=== PATIENT | male | born 1990 | race Caucasian/White ===

== ENCOUNTER 2024-04-28 11:43 | Outpatient (REF) | payer SELFPAY ==
[2024-04-28 13:06] LABS: MANUAL DIFF FLAG NO
[2024-04-28 13:14] LABS: Basophils Absolute Auto 0.1 X10*3/uL (0.0-0.2); Basophils Percent Auto 0.6 % (0-2); Eosinophils Absolute Auto 0.4 X10*3/uL (0.0-0.4); Eosinophils Percent Auto 4.4 % (0-4); Hematocrit 46.5 % (42.0-52.0); Hemoglobin 15.4 g/dl (14.0-18.0); Imm Gran Abs Auto 0.04 X10*3/uL (0.00-0.03); Imm Gran Pct Auto 0.5 % (0.0-0.4); Lymphocytes Percent Auto 22.8 % (20-40); Mean Corpuscular HGB Conc 33.1 g/dl (31.0-36.0); Mean Corpuscular Hemoglobin 29.3 pg (27.0-33.0); Mean Corpuscular Volume 88.6 fL (80.0-98.0); Mean Platelet Volume 9.9 fL (9.4-12.4); Monocytes Absolute Auto 0.5 X10*3/uL (0.1-1.2); Monocytes Percent Auto 5.8 % (2-11); Neutrophils Absolute Auto 5.7 x10*3/uL (2.0-8.3); Neutrophils Percent Auto 65.9 % (45-73); Platelet Count 310 X10*3/uL (160-400); Red Blood Count 5.25 X10*6/uL (4.60-5.80); Red Cell Distribution Width 13.1 % (11.0-16.0); White Blood Count 8.6 X10*3/uL (4.8-10.8)
[2024-04-28 13:42] LABS: Valproate 67.8 mcg/mL (50.0-100.0)
[2024-04-28 13:50] LABS: Alanine Aminotransferase 55 U/L (0-40); Albumin Level 4.1 g/dL (3.5-5.0); Alkaline Phosphatase 54 U/L (39-117); Anion Gap 13 (12-20); Aspartate Amino Transferase 27 U/L (5-37); Bilirubin Total 0.6 mg/dL (0.0-1.0); Blood Urea Nitrogen 13 mg/dL (9-16); Calcium 9.2 mg/dL (8.4-10.2); Carbon Dioxide 28 mmol/L (22-29); Chloride 107 mmol/L (96-108); Cholesterol 181 mg/dL (<200); Estimated Glomerular Filt Rate > 60; Glucose Random 99 mg/dL (60-115); HDL Cholesterol 36 mg/dL (>40); LDL Cholesterol Calculated 129 mg/dL (<100); Potassium 5.2 mmol/L (3.3-5.1); Sodium 143 mmol/L (135-145); Total Protein 6.8 g/dL (6.5-8.0); Triglycerides 80 mg/dL (<150)
== END 2024-04-28 11:44 | disposition home or self-care (01) ==
LOC: HO.HHCL 11:43
PROVIDERS: Visit Provider Registered Nurse
DX: Z79.899 Other long term (current) drug therapy (principal)
CPT/HCPCS: 36415; 80053; 80061; 80164; 85025

== ENCOUNTER 2024-06-18 14:05 | Outpatient (AMB) | payer MEDICARE, MEDICAID, SELFPAY ==
--- NOTE | 2024-06-18 14:18 | A.OFFPC_ITS ---
Vital Signs 06/18/24 14:19 Height 5 ft 3 in Weight 192 lb 8 oz BMI 34.1 BP 120/80 Blood Pressure Location Lt brachial Position Sitting Pulse 94 Pulse Source Pulse Oximeter Temp 97.3 F Temp Source Temporal Artery Scan Pulse Oximetry (%) 99 Oxygen Delivery Method Room Air Intake Visit Reasons: SNUFF BLENDER // Requesting a PE Intake Note: Patient is a new patient here to establish care for HTR. Moved from [place] 4 months ago. Health And Wellness Coordinator Required: No Accompanied by: Self / Same As Patient Allergies buspirone Adverse Reaction (Intermediate, Verified 06/18/24 14:21) face and hand swelling Tobacco use date assessed: 06/18/24 Dental Screening Dental Screen Date: 06/18/24 Did you have a dental visit in the last 12 months?: Yes Did you have a dental problem in the last 6 months where you did not have access to dental care?: No Was dental information given to patient?: Patient has dentist HPI SNUFF BLENDER // Requesting a PE HPI Details Previous PCP: moved from [place], Dr. Obed Bassett Last visit: in a while Last PE: june of 2023 Specialist: OBGYN: Past medical history: WILLI-last 50Ibs and does not need to wear the cpap anymore,, bipolar, ptsd, anxiety, panic attack, fibromyalgia Medications: TRACE[facility] I[facility] psychiatrist and therapist Family HX: Nodule on thyroid gland and it was benign, mother graves disease, lambert eaton syndrome, narcoleptic twin , little sister has auto immune disease, ? lupus Problem: Patient is a 33-year-old trans male who is presenting to establish care Patient moved from [place]. He is currently on HRT treatment that he would like to be refilled Patient denies chest pain, shortness of breath, heart palpitation or dizziness [facility] Medical History (Updated 06/20/24 @ 16:46 by YOUSIF Sorensen) Trans-sexualism with unspecified sexual history Panic attack Fibromyalgia Thyroid nodule Anxiety PTSD (post-traumatic stress disorder) Bipolar 2 disorder WILLI (obstructive sleep apnea) Family History Sister Narcolepsy Lambert-Eaton syndrome Sister Autoimmune disease Mother Graves disease Social History Housing: Apartment Patient Tobacco Use Status: Never used Tobacco Tobacco use type: Cigarette e-Cigarette/Vaping Use: Currently Using (Twisp) Substance Use Type: Marijuana service: No Current occupational status: employed and disabled Cognitive needs: No Hearing needs: No Vision needs: No Questionnaire PHQ-9 Over the last 2 weeks, how often have you been bothered by any of the following problems? 1. Little interest or pleasure in doing things: not at all 2. Feeling down, depressed, or hopeless: not at all 3. Trouble falling or staying asleep, or sleeping too much: not at all 4. Feeling tired or having little energy: not at all 5. Poor appetite or overeating: not at all 6. Feeling bad about yourself - or that you are a failure or have let yourself or your family down: not at all 7. Trouble concentrating on things, such as reading the newspaper or watching television: nearly every day 8. Moving or speaking so slowly that other people could have noticed. Or the opposite - being so fidgety or restless that you have been moving around a lot more than usual: not at all 9. Thoughts that you would be better off or of hurting yourself in some way: not at all Total score: 3 Depression Screening Interpretation: Negative Depression Screening Done: Yes 19595 - PHQ-9 Billing: Yes Source: Developed by Drs. Cristino Serrato, Tamar Portillo, Yahir Das and colleagues, with an educational anthony from [employer]. Thrive Questionnaire Date Thrive assessed: 06/18/24 I am a: Patient What is your living situation today?: I have a steady place to live Within the past 12 months, did the food you bought not last and you didn't have the money to get more?: Sometimes True Within the past 12 months, did you worry whether your food would run out before you got money to buy more?: Sometimes True Do you have trouble paying for medicines?: Yes Do you have trouble getting transportation to medical appointments?: No Do you have trouble paying your heating and electricity bill?: Yes Do you have trouble taking care of your child, family member or friend?: No Do you have trouble with day-to-day activities such as bathing, preparing meals, shopping, managing finances, etc.?: No Are you currently unemployed and looking for a job?: No Are you interested in more education?: Yes Please select the resources that you would like help with: None Currently or been in a relationship where the following occur: I choose not to answer THRIVE Score: 3 AUDIT C Alcohol Use Questionnaire (AUDIT-C) 1. How often do you have a drink containing alcohol?: Never 3. How often do you have six or more drinks on one occasion?: Never Total Score: 0 ROCÍO-7 AMB Questionnaire ROCÍO-7 Date ROCÍO - 7 assessed: 06/18/24 Feeling nervous, anxious, or on edge: 0 = Not at all Not being able to stop or control worryin = Several days Worrying too much about different things: 1 = Several days Trouble relaxin = Several days Being so restless that it is hard to sit still: 1 = Several days Becoming easily annoyed or irritable: 1 = Several days Feeling afraid as if something awful might happen: 0 = Not at all Total ROCÍO-7 score (0-4 normal; 5-9 mild; 10-14 moderate; 15-21 severe): 5 Source: Developed by Drs. Cristino Serrato, Tamar Portillo, Yahir Das and colleagues, with an educational anthony from [employer]. ROCÍO-7 Assessment Billing ROCÍO-7 Assessment Tool: ROCÍO-7 Assessment 46985 Review of Systems Const Details: Denies chills, Denies fatigue, Denies fever(s), Denies headache(s) and Denies weakness HEENT Denies change in vision, Denies dizziness, Denies headache(s), Denies hearing loss, Denies nasal congestion, Denies sinus pain, Denies sinus pressure and Denies sore throat Card Denies chest pain, Denies lightheadedness, Denies dyspnea and Denies other (palpitations) Resp Denies cough, Denies dyspnea and Denies wheezing GI Denies abdominal pain, Denies melena, Denies hematochezia, Denies change in bowel habits, Denies dyspepsia and Denies nausea Denies hematuria and Denies dysuria Musc Denies abnormal gait, Denies myalgias, Denies arthralgias, Denies numbness and Denies tingling Skin/Breast Denies rash, Denies unusual bruising and Denies wounds Neuro Denies abnormal gait, Denies dizziness, Denies headache(s), Denies memory loss, Denies numbness, Denies Sensory deficit (Neuro), Denies tingling and Denies weakness Psych Denies anxiety, Denies depression and Denies memory loss Endo Denies cold intolerance, Denies fatigue, Denies heat intolerance, Denies polydipsia and Denies polyuria Elías/Lymph Denies easy bleeding and Denies easy bruising Aller/Immun Denies wheezing Physical exam (Primary Care) Vital Signs: Last Vital Signs Temp 97.3 F 06/18/24 14:19 Pulse 94 06/18/24 14:19 BP 120/80 06/18/24 14:19 Pulse Ox 99 06/18/24 14:19 Oxygen Delivery Method Room Air 06/18/24 14:19 BMI result Body Mass Index 34.1 Tobacco/Smoking Status: Tobacco use Status Tobacco use date assessed 06/18/24 06/18/24 14:24 Patient Tobacco Use Status Never used Tobacco 06/18/24 14:28 Tobacco use type Cigarette 06/18/24 14:28 e-Cigarette/Vaping Use Currently Using (Twisp) 06/18/24 14:28 PHQ-9: PHQ-9 Score PHQ-9: Total score 3 06/18/24 14:47 Depression Screening Interpretation: Negative Thrive Assessment: Date of Thrive Assessment Date Thrive assessed 06/18/24 06/18/24 14:26 Currently or been in a relationship where the following occur: I choose not to answer Const Other: General: no acute distress, well developed, alert and awake Nutritional Appearance: well nourished Orientation/consciousness: patient oriented x3 HENMT Head: Yes normocephalic and Yes atraumatic Eyes Pupils: Equal, round and reactive pupils present and Pupil accommodation reflex normal EOM: EOMs intact bilaterally Neck Neck: Yes normal visual inspection, Yes no lymphadenopathy Thyroid: Thyroid normal Resp Effort & Inspection: normal respiratory effort Auscultation: clear to auscultation bilaterally Cardio Rate: regular rate Rhythm: regular rhythm Heart sounds: S1 normal heart sound present, S2 normal heart sound present, no gallops, no murmurs and no rubs GI Palpation (GI): Abdomen is soft and nontender Auscultation: normal bowel sounds General: Yes no CVA tenderness Back/Spine/Pelvis Back: no CVA tenderness Cervical Spine: cervical ROM normal and No Cervical spine tenderness Thoracic/Lumbar Spine: No lumbar tenderness Skin General: warm and dry. Normal skin color. Normal skin turgor Lesions: no lesions Nails: normal Neuro General: patient oriented x3, gait normal Cranial nerves: Yes Equal, round and reactive pupils present Cognition (Neuro): normal cognition Gait exam (Neuro): Normal gait present Extrem General: Yes normal to inspection, No edema and No calf tenderness Psych Appearance: grossly normal Affect: normal affect Attitude: cooperative Thought process: Normal thought process present Coding Level of Care Code New Pt Level 4 (69179) Diagnoses Trans-sexualism with unspecified sexual history F64.0 Bipolar 2 disorder F31.81 PTSD (post-traumatic stress disorder) F43.10 Anxiety F41.9 Panic attack F41.0 Additional Codes ROCÍO-7 Assessment Billing - ROCÍO-7 Assessment Tool: ROCÍO-7 Assessment 49636 ([id number]) PHQ-9 - 84492 - PHQ-9 Billing: Yes ([id number]) Time Spent (min) 38 Assessment & Plan Assessment & Plan (1) Trans-sexualism with unspecified sexual history: Comment: transition from female to male Code(s): F64.0 - Transsexualism Category: Medical Plan: Patient is transitioning from female to male. Currently on HRT. He is looking his medication to be refilled. The patient medical records are pending, waiting to confirm treat, will give the patient month supply and refer him to endocrine to continue treatment (2) Bipolar 2 disorder: Code(s): F31.81 - Bipolar II disorder Category: Medical Plan: The patient is on Depakote and is being [facility] by [facility] pyschiatry and therapy (3) PTSD (post-traumatic stress disorder): Code(s): F43.10 - Post-traumatic stress disorder, unspecified Category: Medical Plan: We will per Psychiatry as scheduled (4) Anxiety: Code(s): F41.9 - Anxiety disorder, unspecified Category: Medical Plan: Follow up with psychiatry as scheduled (5) Panic attack: Code(s): F41.0 - Panic disorder [episodic paroxysmal anxiety] Category: Medical Plan: follow up with psychiatry as scheduled Orders: Orders Complete Blood Count Auto Diff 06/18/24 Z00.00 - Encounter for general adult medical examination without abnormal findings Comprehensive [place]. Panel Fast 06/18/24 Z00.00 - Encounter for general adult medical examination without abnormal findings UA CC w/rflx Micro + Cult 06/18/24 Z00.00 - Encounter for general adult medical examination without abnormal findings TSH reflex Free T4 06/18/24 Z00.00 - Encounter for general adult medical examination without abnormal findings Lipid Panel 06/18/24 Z00.00 - Encounter for general adult medical examination without abnormal findings Vitamin D 25-OH Total 06/18/24 Z00.00 - Encounter for general adult medical examination without abnormal findings Glucose Fasting 06/18/24 Z00.00 - Encounter for general adult medical examination without abnormal findings
[2024-06-18 14:19] VITALS: BP 120/80; PULSE 94; TEMP 36.3; O2SAT 99; BMI 34.1
== END 2024-06-18 15:13 | disposition home or self-care (01) ==
DX: F64.0 Transsexualism (principal); F31.81 Bipolar II disorder; F43.10 Post-traumatic stress disorder, unspecified; F41.9 Anxiety disorder, unspecified; F41.0 Panic disorder [episodic paroxysmal anxiety]

== ENCOUNTER → 2024-06-18 14:05 | Outpatient (BNVA) | payer OTHER, SELFPAY | DX: F64.0 Transsexualism (principal); F41.9 Anxiety disorder, unspecified; F41.0 Panic disorder [episodic paroxysmal anxiety]; F31.81 Bipolar II disorder; F43.10 Post-traumatic stress disorder, unspecified | CPT/HCPCS: 96127; 99202 ==

== ENCOUNTER 2024-06-28 10:50 | Outpatient (REF) | payer OTHER, SELFPAY ==
[2024-06-28 13:08] LABS: Appearance Urine Clear; Color Urine Yellow; Glucose Urine UA Negative (Negative); Leukocyte Esterase Urine Negative (Negative); Nitrite Urine Negative (Negative); Urine Blood Negative (Negative); Urine Ketones Negative (Negative); Urine Protein Negative (Neg-Trace)
[2024-06-28 13:10] LABS: MANUAL DIFF FLAG NO
[2024-06-28 13:32] LABS: Basophils Absolute Auto 0.1 X10*3/uL (0.0-0.2); Basophils Percent Auto 0.9 % (0-2); Eosinophils Absolute Auto 0.4 X10*3/uL (0.0-0.4); Eosinophils Percent Auto 5.6 % (0-4); Hemoglobin 14.7 g/dl (14.0-18.0); Imm Gran Abs Auto 0.02 X10*3/uL (0.00-0.03); Imm Gran Pct Auto 0.3 % (0.0-0.4); Lymphocytes Absolute Auto 2.1 X10*3/uL (1.2-4.9); Lymphocytes Percent Auto 30.4 % (20-40); Mean Corpuscular HGB Conc 33.4 g/dl (31.0-36.0); Mean Corpuscular Hemoglobin 29.7 pg (27.0-33.0); Mean Corpuscular Volume 88.9 fL (80.0-98.0); Mean Platelet Volume 10.7 fL (9.4-12.4); Monocytes Absolute Auto 0.5 X10*3/uL (0.1-1.2); Monocytes Percent Auto 7.9 % (2-11); Neutrophils Absolute Auto 3.8 x10*3/uL (2.0-8.3); Neutrophils Percent Auto 54.9 % (45-73); Platelet Count 294 X10*3/uL (160-400); Red Blood Count 4.95 X10*6/uL (4.60-5.80); White Blood Count 6.8 X10*3/uL (4.8-10.8)
[2024-06-28 13:59] LABS: Alanine Aminotransferase 45 U/L (0-40); Albumin Level 4.2 g/dL (3.5-5.0); Alkaline Phosphatase 56 U/L (39-117); Anion Gap 12 (12-20); Aspartate Amino Transferase 29 U/L (5-37); Bilirubin Total 0.6 mg/dL (0.0-1.0); Blood Urea Nitrogen 13 mg/dL (9-16); Calcium 9.1 mg/dL (8.4-10.2); Carbon Dioxide 23 mmol/L (22-29); Chloride 108 mmol/L (96-108); Cholesterol 162 mg/dL (<200); Estimated Glomerular Filt Rate > 60; Glucose Fasting 91 mg/dL (60-99); HDL Cholesterol 35 mg/dL (>40); LDL Cholesterol Calculated 113 mg/dL (<100); Potassium 4.7 mmol/L (3.3-5.1); Sodium 138 mmol/L (135-145); Total Protein 7.2 g/dL (6.5-8.0); Triglycerides 72 mg/dL (<150)
[2024-06-28 14:03] LABS: TSH reflex Free T4 0.81 uIU/mL (0.32-4.0); Vitamin D 25-OH Total 73.2 ng/mL (>30)
== END 2024-06-28 10:51 | disposition home or self-care (01) ==
LOC: HO.HHCL 10:50
DX: Z00.00 Encounter for general adult medical examination without abnormal findings (principal); Z13.6 Encounter for screening for cardiovascular disorders
CPT/HCPCS: 36415; 80053; 80061; 81003; 82306; 84443; 85025

== ENCOUNTER 2024-06-28 11:44 | Outpatient (REF) | payer OTHER, SELFPAY | END 2024-06-28 11:45 | disposition home or self-care (01) | LOC: HO.HHCL 11:44 | DX: Z13.89 Encounter for screening for other disorder (principal) ==

== ENCOUNTER 2024-07-02 10:57 | Outpatient (AMB) | payer OTHER, MEDICARE, MEDICAID, SELFPAY ==
[2024-07-02 11:08] VITALS: BP 108/62; PULSE 103; TEMP 36.4; O2SAT 97; BMI 33.9
--- NOTE | 2024-07-02 11:08 | MHC.PC.OV ---
Vital Signs 07/02/24 11:08 Height 5 ft 3 in Weight 191 lb 3.2 oz BMI 33.9 BP 108/62 Blood Pressure Location Lt brachial Position Sitting Pulse 103 H Pulse Source Pulse Oximeter Temp 97.5 F Temp Source Temporal Artery Scan Pulse Oximetry (%) 97 Oxygen Delivery Method Room Air Intake Visit Reasons: 3 Months f/u Intake Note: Patient is a new patient here to establish care for HTR. Moved from [facility] 4 months ago. Legal Billing Clerk Required: No Accompanied by: Self / Same As Patient Allergies buspirone Adverse Reaction (Intermediate, Verified 07/02/24 11:20) face and hand swelling Medication List - Last Reconciled 07/02/24 by YOUSIF Sorensen clonazepam 0.5 mg PO BID PRN divalproex ER 2,000 mg PO BEDTIME lurasidone 120 mg PO DAILY testosterone cypionate 200 mg IM QWEEK Tobacco use date assessed: 07/02/24 Dental Screening Dental Screen Date: 07/02/24 Did you have a dental visit in the last 12 months?: Yes Did you have a dental problem in the last 6 months where you did not have access to dental care?: No Was dental information given to patient?: Patient has dentist HPI 3 Months f/u HPI Details The patient is a 33 y/o transition female to male presenting for follow up appt for lab review This is my second time meeting the patient, he was a new patient on the previous visit The patient moved from [place], where the patient started the transition journey Reviewed recent labs with patient The patient reports that in 2008 he had a lateral release of his left knee and was told he had osteoarthritis-will order and x-ray to further evaluate The patient reports that overall he is feeling good; he has been on a health journey and has been working out and eating better Denies chest pain, sob, heart palpitation or dizziness Denies any changes in bowel habits or urinary symptoms PFSH Medical History (Updated 07/03/24 @ 08:59 by YOUSIF Sorensen) High cholesterol Trans-sexualism with unspecified sexual history Panic attack Fibromyalgia Thyroid nodule Anxiety PTSD (post-traumatic stress disorder) Bipolar 2 disorder WILLI (obstructive sleep apnea) Surgical History H/O sinus surgery Hx of appendectomy H/O rhinoplasty History of cholecystectomy H/O hand surgery S/P knee surgery S/P tonsillectomy and adenoidectomy Family History Sister Narcolepsy Lambert-Eaton syndrome Sister Autoimmune disease Mother Graves disease Social History Housing: Apartment Patient Tobacco Use Status: Never used Tobacco Tobacco use type: Cigarette e-Cigarette/Vaping Use: Currently Using ([place]) Substance Use Type: Marijuana service: No Current occupational status: employed and disabled Cognitive needs: No Hearing needs: No Vision needs: No Questionnaire Thrive Questionnaire Date Thrive assessed: 06/18/24 I am a: Patient What is your living situation today?: I have a steady place to live Within the past 12 months, did the food you bought not last and you didn't have the money to get more?: Sometimes True Within the past 12 months, did you worry whether your food would run out before you got money to buy more?: Sometimes True Do you have trouble paying for medicines?: Yes Do you have trouble getting transportation to medical appointments?: No Do you have trouble paying your heating and electricity bill?: Yes Do you have trouble taking care of your child, family member or friend?: No Do you have trouble with day-to-day activities such as bathing, preparing meals, shopping, managing finances, etc.?: No Are you currently unemployed and looking for a job?: No Are you interested in more education?: Yes Please select the resources that you would like help with: None Currently or been in a relationship where the following occur: I choose not to answer THRIVE Score: 3 ROCÍO-7 AMB Questionnaire ROCÍO-7 Date ROCÍO - 7 assessed: 06/18/24 Source: Developed by Drs. Cristino Serrato, Tamar Portillo, Yahir Das and colleagues, with an educational anhtony from [employer]. Review of Systems Const Denies headache(s) Eyes Denies loss of vision ENT Denies vertigo, Denies dizziness, Denies headache(s) and Denies sore throat Card Denies chest pain, Denies leg edema and Denies lightheadedness Resp Denies cough, Denies hemoptysis and Denies wheezing GI Denies abdominal pain, Denies melena, Denies constipation, Denies diarrhea and Denies vomiting Denies dysuria, Denies urinary frequency and Denies urinary urgency Musc Reports arthralgias (left knee pain-old injury(s/p lateral release)), Denies joint swelling, Denies numbness and Denies tingling Neuro Denies Abnormal speech present, Denies behavioral changes, Denies vertigo, Denies dizziness, Denies headache(s), Denies loss of vision, Denies memory loss, Denies numbness and Denies tingling Psych Denies anxiety, Denies behavioral changes, Denies depression, Denies memory loss and Denies panic attacks Elías/Lymph Denies easy bleeding and Denies easy bruising Aller/Immun Denies wheezing Physical exam (Primary Care) Vital Signs: Last Vital Signs Temp 97.5 F 07/02/24 11:08 Pulse 103 H 07/02/24 11:08 BP 108/62 07/02/24 11:08 Pulse Ox 97 07/02/24 11:08 Oxygen Delivery Method Room Air 07/02/24 11:08 BMI result Body Mass Index 33.9 Tobacco/Smoking Status: Tobacco use Status Tobacco use date assessed 07/02/24 07/02/24 11:16 Patient Tobacco Use Status Never used Tobacco 07/02/24 11:13 Tobacco use type Cigarette 07/02/24 11:13 e-Cigarette/Vaping Use Currently Using ([place]) 07/02/24 11:13 Thrive Assessment: Date of Thrive Assessment Date Thrive assessed 06/18/24 07/02/24 11:13 Currently or been in a relationship where the following occur: I choose not to answer Const General: healthy appearing, no acute distress, alert and awake Nutritional Appearance: well nourished Orientation/consciousness: oriented to person, oriented to place and oriented to time HENMT Ears: TM's normal bilaterally General nose exam: Normal nasal mucous membranes and turbinates present Eyes Conjunctivae: conjunctivae normal Sclerae: sclerae normal Pupils: Equal, round and reactive pupils present Neck Neck: Yes no lymphadenopathy and Yes no JVD Thyroid: Thyroid normal Carotids: no bruits Resp Effort & Inspection: normal respiratory effort and not tachypneic Auscultation: no crackles, no rales, no rhonchi and no wheezes Cardio Rate: regular rate Rhythm: regular rhythm Heart sounds: no murmurs and normal S1 and S2 GI Palpation (GI): Soft to palpation, nontender, no hepatomegaly and no splenomegaly Auscultation: normal bowel sounds General: Yes no CVA tenderness Back/Spine/Pelvis Back: no CVA tenderness Cervical Spine: No Cervical spine tenderness Thoracic/Lumbar Spine: thoracic and lumbar spine normal to inspection Skin General skin exam: no rashes or lesions noted and dry skin Neuro General: oriented to person, oriented to place and oriented to time Cranial nerves: Yes Equal, round and reactive pupils present Speech: No Abnormal speech present Gait exam (Neuro): Normal gait present Motor exam (neuro): no tremor noted Extrem Right upper extremity: full ROM Left upper extremity: full ROM Right lower extremity: full ROM; no edema Left lower extremity: normal to inspection, full ROM and no joint enlargement; no edema Psych Mental Status: mental status grossly normal Speech and movement: Normal speech and movement present Affect: normal affect Attitude: cooperative Thought process: Normal thought process present Results Reviewed Results Reviewed: Laboratory Tests 06/28/24 06/28/24 10:52 11:47 WBC 6.8 RBC 4.95 Hgb 14.7 Hct 44.0 Plt Count 294 Sodium 138 Potassium 4.7 Chloride 108 Carbon Dioxide 23 BUN 13 Creatinine 0.78 Estimated GFR > 60 Fasting Glucose 91 Calcium 9.1 AST 29 ALT 45 H Alkaline Phosphatase 56 Total Protein 7.2 Albumin 4.2 Triglycerides 72 Cholesterol 162 LDL Cholesterol, Calc 113 H HDL Cholesterol 35 L 25-OH Vitamin D Total 73.2 TSH 0.81 Urine Color Yellow Urine Appearance Clear Urine pH 6.0 Ur Specific [place] 1.010 Urine Protein Negative Urine Glucose (UA) Negative Urine Ketones Negative Urine Blood Negative Urine Nitrite Negative Ur Leukocyte Esterase Negative Coding Level of Care Code Est Pt Level 3 (67030) Diagnoses 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 F64.0; Z79.899 Elevated ALT measurement R74.01 High cholesterol E78.00 Chronic pain of left knee M25.562; G89.29 Chronicity: chronic Bipolar 2 disorder F31.81 PTSD (post-traumatic stress disorder) F43.10 Anxiety F41.9 Panic attack F41.0 Time Spent (min) 39 Assessment & Plan Assessment & Plan (1) 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: Code(s): F64.0 - Transsexualism; Z79.899 - Other long-term (current) drug therapy Category: Medical Plan: The patient is on testosterone cypionate 200mg IM qwk Will refer the patient to endocrine (2) Elevated ALT measurement: Code(s): R74.01 - Elevation of levels of liver transaminase levels Category: Medical Plan: ALT slightly elevated the patient reports a hx of alcoholism avoid tylenol, alcohol and lower cholesterol-The patient is also on Divalproex ER 2000MG, which could affect liver as well The patient ALT 45 was previous 55; it is trending in the right direction. Will continue to monitor (3) High cholesterol: Code(s): E78.00 - Pure hypercholesterolemia, unspecified Category: Medical Plan: Elevated LDL-reports that he has always had a problem with his cholesterol but has been working out more often and eating better Will recheck lipid panel in 3 months (4) Left knee pain: Code(s): M25.562 - Pain in left knee Category: Medical Qualifiers: Chronicity: chronic Qualified Code(s): M25.562 - Pain in left knee; G89.29 - Other chronic pain Plan: The patient had a lateral release in the past. Reports that on and off left knee bothers him, especially, since he had started working out more-Will obtain x-ray to further evaluate (5) Bipolar 2 disorder: Code(s): F31.81 - Bipolar II disorder Category: Medical Plan: The patient is on Depakote 2000mg at bedtime, Lurasidone 120 mg daily and is being seen by [facility] pyschiatry and therapy Denies si/hi (6) PTSD (post-traumatic stress disorder): Code(s): F43.10 - Post-traumatic stress disorder, unspecified Category: Medical Plan: Continue clonazepam 0.5 mg BID PRN Continue with psychiatry as scheduled (7) Anxiety: Code(s): F41.9 - Anxiety disorder, unspecified Category: Medical Plan: continue clonazepam 0.5 mg bid prn Follow up with psychiatry as scheduled (8) Panic attack: Code(s): F41.0 - Panic disorder [episodic paroxysmal anxiety] Category: Medical Plan: continue clonazepam 0.5 mg BID PRN follow up with psychiatry as scheduled Plan The patient to follow in 3 months and recheck labs prior to appt Orders: Orders XR knee LT 3V 3 Months E78.00 - Pure hypercholesterolemia, unspecified, F41.0 - Panic disorder [episodic paroxysmal anxiety], F41.9 - Anxiety disorder, unspecified, M25.562 - Pain in left knee, R74.01 - Elevation of levels of liver transaminase levels TSH reflex Free T4 3 Months E78.00 - Pure hypercholesterolemia, unspecified, F41.0 - Panic disorder [episodic paroxysmal anxiety], F41.9 - Anxiety disorder, unspecified, M25.562 - Pain in left knee, R74.01 - Elevation of levels of liver transaminase levels Glucose Fasting 3 Months E78.00 - Pure hypercholesterolemia, unspecified, F41.0 - Panic disorder [episodic paroxysmal anxiety], F41.9 - Anxiety disorder, unspecified, M25.562 - Pain in left knee, R74.01 - Elevation of levels of liver transaminase levels Complete Blood Count Auto Diff 3 Months E78.00 - Pure hypercholesterolemia, unspecified, F41.0 - Panic disorder [episodic paroxysmal anxiety], F41.9 - Anxiety disorder, unspecified, M25.562 - Pain in left knee, R74.01 - Elevation of levels of liver transaminase levels Comprehensive [place]. Panel Fast 3 Months E78.00 - Pure hypercholesterolemia, unspecified, F41.0 - Panic disorder [episodic paroxysmal anxiety], F41.9 - Anxiety disorder, unspecified, M25.562 - Pain in left knee, R74.01 - Elevation of levels of liver transaminase levels Lipid Panel 3 Months E78.00 - Pure hypercholesterolemia, unspecified, F41.0 - Panic disorder [episodic paroxysmal anxiety], F41.9 - Anxiety disorder, unspecified, M25.562 - Pain in left knee, R74.01 - Elevation of levels of liver transaminase levels Vitamin D 25-OH Total 3 Months E78.00 - Pure hypercholesterolemia, unspecified, F41.0 - Panic disorder [episodic paroxysmal anxiety], F41.9 - Anxiety disorder, unspecified, M25.562 - Pain in left knee, R74.01 - Elevation of levels of liver transaminase levels UA CC w/rflx Micro + Cult 3 Months E78.00 - Pure hypercholesterolemia, unspecified, F41.0 - Panic disorder [episodic paroxysmal anxiety], F41.9 - Anxiety disorder, unspecified, M25.562 - Pain in left knee, R74.01 - Elevation of levels of liver transaminase levels Medications: New testosterone cypionate 200 mg IM QWEEK 90 days 13 mL 2RF F64.0 - Transsexualism, Z79.899 - Other lobsterman (current) drug therapy
--- NOTE | 2024-07-03 10:34 | MHC.PC.OV ---
Vital Signs 07/02/24 11:08 Height 5 ft 3 in Weight 191 lb 3.2 oz BMI 33.9 BP 108/62 Blood Pressure Location Lt brachial Position Sitting Pulse 103 H Pulse Source Pulse Oximeter Temp 97.5 F Temp Source Temporal Artery Scan Pulse Oximetry (%) 97 Oxygen Delivery Method Room Air Intake Visit Reasons: 3 Months f/u Allergies buspirone Adverse Reaction (Intermediate, Verified 07/02/24 11:20) face and hand swelling Medication List - Last Reconciled 07/02/24 by YOUSIF Sorensen clonazepam 0.5 mg PO BID PRN divalproex ER 2,000 mg PO BEDTIME lurasidone 120 mg PO DAILY testosterone cypionate 200 mg IM QWEEK Tobacco use date assessed: 07/02/24 Dental Screening Dental Screen Date: 07/02/24 Did you have a dental visit in the last 12 months?: Yes Did you have a dental problem in the last 6 months where you did not have access to dental care?: No Was dental information given to patient?: Patient has dentist [facility] Medical History (Updated 07/03/24 @ 08:59 by YOUSIF Sorensen) High cholesterol Trans-sexualism with unspecified sexual history Panic attack Fibromyalgia Thyroid nodule Anxiety PTSD (post-traumatic stress disorder) Bipolar 2 disorder WILLI (obstructive sleep apnea) Surgical History H/O sinus surgery Hx of appendectomy H/O rhinoplasty History of cholecystectomy H/O hand surgery S/P knee surgery S/P tonsillectomy and adenoidectomy Family History Sister Narcolepsy Lambert-Eaton syndrome Sister Autoimmune disease Mother Graves disease Social History Housing: Apartment Patient Tobacco Use Status: Never used Tobacco Tobacco use type: Cigarette e-Cigarette/Vaping Use: Currently Using ([place]) Substance Use Type: Marijuana service: No Current occupational status: employed and disabled Cognitive needs: No Hearing needs: No Vision needs: No Questionnaire Thrive Questionnaire Date Thrive assessed: 06/18/24 I am a: Patient What is your living situation today?: I have a steady place to live Within the past 12 months, did the food you bought not last and you didn't have the money to get more?: Sometimes True Within the past 12 months, did you worry whether your food would run out before you got money to buy more?: Sometimes True Do you have trouble paying for medicines?: Yes Do you have trouble getting transportation to medical appointments?: No Do you have trouble paying your heating and electricity bill?: Yes Do you have trouble taking care of your child, family member or friend?: No Do you have trouble with day-to-day activities such as bathing, preparing meals, shopping, managing finances, etc.?: No Are you currently unemployed and looking for a job?: No Are you interested in more education?: Yes Please select the resources that you would like help with: None Currently or been in a relationship where the following occur: I choose not to answer THRIVE Score: 3 ROCÍO-7 AMB Questionnaire ROCÍO-7 Date ROCÍO - 7 assessed: 06/18/24 Source: Developed by Drs. Cristino Serrato, Tamar Portillo, Yahir Das and colleagues, with an educational anthony from [employer]. Physical exam (Primary Care) Vital Signs: Last Vital Signs Temp 97.5 F 07/02/24 11:08 Pulse 103 H 07/02/24 11:08 BP 108/62 07/02/24 11:08 Pulse Ox 97 07/02/24 11:08 Oxygen Delivery Method Room Air 07/02/24 11:08 BMI result Body Mass Index 33.9 Tobacco/Smoking Status: Tobacco use Status Tobacco use date assessed 07/02/24 07/02/24 11:16 Patient Tobacco Use Status Never used Tobacco 07/02/24 11:13 Tobacco use type Cigarette 07/02/24 11:13 e-Cigarette/Vaping Use Currently Using ([place]) 07/02/24 11:13 Thrive Assessment: Date of Thrive Assessment Date Thrive assessed 06/18/24 07/02/24 11:13 Currently or been in a relationship where the following occur: I choose not to answer Coding Diagnoses 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 F64.0; Z79.899 Elevated ALT measurement R74.01 High cholesterol E78.00 Chronic pain of left knee M25.562; G89.29 Chronicity: chronic Bipolar 2 disorder F31.81 PTSD (post-traumatic stress disorder) F43.10 Anxiety F41.9 Panic attack F41.0 Assessment & Plan Assessment & Plan (1) 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: Code(s): F64.0 - Transsexualism; Z79.899 - Other senior living (current) drug therapy Category: Medical (2) Elevated ALT measurement: Code(s): R74.01 - Elevation of levels of liver transaminase levels Category: Medical (3) High cholesterol: Code(s): E78.00 - Pure hypercholesterolemia, unspecified Category: Medical (4) Left knee pain: Code(s): M25.562 - Pain in left knee Category: Medical Qualifiers: Chronicity: chronic Qualified Code(s): M25.562 - Pain in left knee; G89.29 - Other chronic pain (5) Bipolar 2 disorder: Code(s): F31.81 - Bipolar II disorder Category: Medical (6) PTSD (post-traumatic stress disorder): Code(s): F43.10 - Post-traumatic stress disorder, unspecified Category: Medical (7) Anxiety: Code(s): F41.9 - Anxiety disorder, unspecified Category: Medical (8) Panic attack: Code(s): F41.0 - Panic disorder [episodic paroxysmal anxiety] Category: Medical Orders: Orders XR knee LT 3V 3 Months E78.00 - Pure hypercholesterolemia, unspecified, F41.0 - Panic disorder [episodic paroxysmal anxiety], F41.9 - Anxiety disorder, unspecified, M25.562 - Pain in left knee, R74.01 - Elevation of levels of liver transaminase levels TSH reflex Free T4 3 Months E78.00 - Pure hypercholesterolemia, unspecified, F41.0 - Panic disorder [episodic paroxysmal anxiety], F41.9 - Anxiety disorder, unspecified, M25.562 - Pain in left knee, R74.01 - Elevation of levels of liver transaminase levels Glucose Fasting 3 Months E78.00 - Pure hypercholesterolemia, unspecified, F41.0 - Panic disorder [episodic paroxysmal anxiety], F41.9 - Anxiety disorder, unspecified, M25.562 - Pain in left knee, R74.01 - Elevation of levels of liver transaminase levels Complete Blood Count Auto Diff 3 Months E78.00 - Pure hypercholesterolemia, unspecified, F41.0 - Panic disorder [episodic paroxysmal anxiety], F41.9 - Anxiety disorder, unspecified, M25.562 - Pain in left knee, R74.01 - Elevation of levels of liver transaminase levels Comprehensive [place]. Panel Fast 3 Months E78.00 - Pure hypercholesterolemia, unspecified, F41.0 - Panic disorder [episodic paroxysmal anxiety], F41.9 - Anxiety disorder, unspecified, M25.562 - Pain in left knee, R74.01 - Elevation of levels of liver transaminase levels Lipid Panel 3 Months E78.00 - Pure hypercholesterolemia, unspecified, F41.0 - Panic disorder [episodic paroxysmal anxiety], F41.9 - Anxiety disorder, unspecified, M25.562 - Pain in left knee, R74.01 - Elevation of levels of liver transaminase levels Vitamin D 25-OH Total 3 Months E78.00 - Pure hypercholesterolemia, unspecified, F41.0 - Panic disorder [episodic paroxysmal anxiety], F41.9 - Anxiety disorder, unspecified, M25.562 - Pain in left knee, R74.01 - Elevation of levels of liver transaminase levels UA CC w/rflx Micro + Cult 3 Months E78.00 - Pure hypercholesterolemia, unspecified, F41.0 - Panic disorder [episodic paroxysmal anxiety], F41.9 - Anxiety disorder, unspecified, M25.562 - Pain in left knee, R74.01 - Elevation of levels of liver transaminase levels Medications: New testosterone cypionate 200 mg IM QWEEK 13 mL 2RF 90 days F64.0 - Transsexualism, Z79.899 - Other senior living (current) drug therapy
== END 2024-07-02 11:49 | disposition home or self-care (01) ==
LOC: HO.HMCH 10:58
DX: E78.00 Pure hypercholesterolemia, unspecified (principal); F64.0 Transsexualism; F31.81 Bipolar II disorder; Z79.899 Other long term (current) drug therapy; R74.01 Elevation of levels of liver transaminase levels; M25.562 Pain in left knee; G89.29 Other chronic pain; F43.10 Post-traumatic stress disorder, unspecified; F41.9 Anxiety disorder, unspecified; F41.0 Panic disorder [episodic paroxysmal anxiety]

== ENCOUNTER 2024-09-15 15:11 | Outpatient (REF) | payer MEDICARE, MEDICAID, SELFPAY ==
--- NOTE | ~2024-09-15 | XR_ITS ---
EXAMINATION: XR KNEE, LEFT CLINICAL INFORMATION: M25.562 - Pain in left knee COMPARISON: None available. TECHNIQUE: AP lateral and sunrise views of the left knee. FINDINGS: No acute cortical disruption or malalignment. No lytic or blastic lesions. No suprapatellar bursa joint effusion. There is preservation of the joint spaces. Well-corticated 6 mm calcification, popliteal region. XR/XR knee LT 3V IMPRESSION: No acute fracture or dislocation. Negative x-ray. Electronically signed by: Branden Parks MD 09/15/2024 03:51 PM EDT
== END 2024-09-15 15:12 | disposition home or self-care (01) ==
LOC: HO.XRAY 15:11
DX: M25.562 Pain in left knee (principal)
CPT/HCPCS: 73562

== ENCOUNTER → 2024-09-15 15:23 | Outpatient (BNV) | payer MEDICARE, MEDICAID, SELFPAY | PROVIDERS: Visit Provider Radiology Diagnostic Radiology | DX: M25.562 Pain in left knee (principal) | CPT/HCPCS: 73562 ==

== ENCOUNTER 2024-09-30 08:26 | Outpatient (REF) | payer MEDICARE, MEDICAID, SELFPAY ==
[2024-09-30 11:17] LABS: MANUAL DIFF FLAG NO
[2024-09-30 11:31] LABS: Basophils Absolute Auto 0.1 X10*3/uL (0.0-0.2); Basophils Percent Auto 0.9 % (0-2); Eosinophils Absolute Auto 0.4 X10*3/uL (0.0-0.4); Eosinophils Percent Auto 5.3 % (0-4); Hematocrit 46.4 % (42.0-52.0); Hemoglobin 15.5 g/dl (14.0-18.0); Imm Gran Abs Auto 0.03 X10*3/uL (0.00-0.03); Imm Gran Pct Auto 0.4 % (0.0-0.4); Lymphocytes Absolute Auto 2.3 X10*3/uL (1.2-4.9); Lymphocytes Percent Auto 29.4 % (20-40); Mean Corpuscular HGB Conc 33.4 g/dl (31.0-36.0); Mean Corpuscular Hemoglobin 30.2 pg (27.0-33.0); Mean Corpuscular Volume 90.4 fL (80.0-98.0); Mean Platelet Volume 10.4 fL (9.4-12.4); Monocytes Absolute Auto 0.6 X10*3/uL (0.1-1.2); Monocytes Percent Auto 7.9 % (2-11); Neutrophils Absolute Auto 4.4 x10*3/uL (2.0-8.3); Neutrophils Percent Auto 56.1 % (45-73); Platelet Count 263 X10*3/uL (160-400); Red Blood Count 5.13 X10*6/uL (4.60-5.80); Red Cell Distribution Width 12.8 % (11.0-16.0); White Blood Count 7.8 X10*3/uL (4.8-10.8)
[2024-09-30 11:38] LABS: Alanine Aminotransferase 33 U/L (0-40); Albumin Level 4.4 g/dL (3.5-5.0); Alkaline Phosphatase 55 U/L (39-117); Anion Gap 12 (12-20); Aspartate Amino Transferase 30 U/L (5-37); Bilirubin Total 0.7 mg/dL (0.0-1.0); Blood Urea Nitrogen 15 mg/dL (9-16); Calcium 9.1 mg/dL (8.4-10.2); Carbon Dioxide 25 mmol/L (22-29); Chloride 107 mmol/L (96-108); Cholesterol 190 mg/dL (<200); Estimated Glomerular Filt Rate > 60; Glucose Fasting 85 mg/dL (60-99); HDL Cholesterol 41 mg/dL (>40); LDL Cholesterol Calculated 132 mg/dL (<100); Potassium 4.3 mmol/L (3.3-5.1); Sodium 140 mmol/L (135-145); Total Protein 6.6 g/dL (6.5-8.0); Triglycerides 88 mg/dL (<150)
[2024-09-30 11:57] LABS: TSH reflex Free T4 0.74 uIU/mL (0.32-4.0); Vitamin D 25-OH Total 69.5 ng/mL (>30)
== END 2024-09-30 08:27 | disposition home or self-care (01) ==
LOC: HO.HHCL 08:26
DX: F41.0 Panic disorder [episodic paroxysmal anxiety] (principal); F41.9 Anxiety disorder, unspecified; E78.00 Pure hypercholesterolemia, unspecified; R74.01 Elevation of levels of liver transaminase levels; M25.562 Pain in left knee
CPT/HCPCS: 36415; 80053; 80061; 82306; 84443; 85025

== ENCOUNTER 2024-10-04 10:50 | Outpatient (AMB) | payer MEDICARE, MEDICAID, SELFPAY ==
--- NOTE | 2024-10-04 10:52 | MHC.PC.OV ---
Vital Signs 10/04/24 11:04 Height 5 ft 3 in Weight 187 lb 4 oz BMI 33.2 BP 120/80 Blood Pressure Location Lt brachial Position Sitting Pulse 70 Pulse Source Pulse Oximeter Temp 97.3 F Temp Source Temporal Artery Scan Pulse Oximetry (%) 98 Oxygen Delivery Method Room Air Intake Visit Reasons: hld/elevated ALT Business Solutions Director Required: No Accompanied by: Self / Same As Patient Allergies buspirone Adverse Reaction (Intermediate, Verified 10/04/24 11:12) face and hand swelling Medication List - Last Reconciled 10/04/24 by YOUSIF Sorensen clonazepam 0.5 mg PO BID PRN divalproex ER 2,000 mg PO BEDTIME lurasidone 120 mg PO DAILY testosterone cypionate 200 mg IM QWEEK 90 days Tobacco use date assessed: 06/18/24 Dental Screening Dental Screen Date: 06/18/24 HPI hld/elevated ALT HPI Details The patient is a 33-year-old male presenting for follow-up on hypercholesterolemia and knee pain. His cholesterol levels have risen, with LDL remaining high despite incorporating lifestyle changes, including cessation of ice cream intake. A family history of heart disease is significant. His knee pain persists despite normal X-ray results, prompting concerns about underlying arthritis, given prior surgical intervention findings of calcification. He denies chest pain, sob, heart palpitation or dizziness. No abdominal pain or change in bowel habits. The patient reports that he went on vacation and started eating badly and continued this eating habits days after returning. He will go back to modifying his diet. [facility] Medical History (Updated 07/03/24 @ 08:59 by YOUSIF Sorensen) High cholesterol Trans-sexualism with unspecified sexual history Panic attack Fibromyalgia Thyroid nodule Anxiety PTSD (post-traumatic stress disorder) Bipolar 2 disorder WILLI (obstructive sleep apnea) Surgical History H/O sinus surgery Hx of appendectomy H/O rhinoplasty History of cholecystectomy H/O hand surgery S/P knee surgery S/P tonsillectomy and adenoidectomy Family History Sister Narcolepsy Lambert-Eaton syndrome Sister Autoimmune disease Mother Graves disease Social History Housing: Apartment Patient Tobacco Use Status: Never used Tobacco Tobacco use type: Cigarette e-Cigarette/Vaping Use: Currently Using ([place]) Substance Use Type: Marijuana service: No Current occupational status: employed and disabled Cognitive needs: No Hearing needs: No Vision needs: No Questionnaire Thrive Questionnaire Date Thrive assessed: 06/18/24 I am a: Patient What is your living situation today?: I have a steady place to live Within the past 12 months, did the food you bought not last and you didn't have the money to get more?: Sometimes True Within the past 12 months, did you worry whether your food would run out before you got money to buy more?: Sometimes True Do you have trouble paying for medicines?: Yes Do you have trouble getting transportation to medical appointments?: No Do you have trouble paying your heating and electricity bill?: Yes Do you have trouble taking care of your child, family member or friend?: No Do you have trouble with day-to-day activities such as bathing, preparing meals, shopping, managing finances, etc.?: No Are you currently unemployed and looking for a job?: No Are you interested in more education?: Yes Please select the resources that you would like help with: None Currently or been in a relationship where the following occur: I choose not to answer THRIVE Score: 3 AUDIT C Alcohol Use Questionnaire (AUDIT-C) 3. How often do you have six or more drinks on one occasion?: Never Total Score: 0 ROCÍO-7 AMB Questionnaire ROCÍO-7 Date ROCÍO - 7 assessed: 06/18/24 Source: Developed by Drs. Cristino Serrato, Tamar Portillo, Yahir Das and colleagues, with an educational anthony from [employer]. Review of Systems Const Denies headache(s) Eyes Denies loss of vision ENT Denies vertigo, Denies dizziness, Denies headache(s) and Denies sore throat Card Denies chest pain, Denies leg edema and Denies lightheadedness Resp Denies cough, Denies hemoptysis and Denies wheezing GI Denies abdominal pain, Denies melena, Denies constipation, Denies diarrhea and Denies vomiting Denies dysuria, Denies urinary frequency and Denies urinary urgency Musc Denies arthralgias, Denies joint swelling, Denies numbness and Denies tingling Neuro Denies Abnormal speech present, Denies behavioral changes, Denies vertigo, Denies dizziness, Denies headache(s), Denies loss of vision, Denies memory loss, Denies numbness and Denies tingling Psych Denies anxiety, Denies behavioral changes, Denies depression, Denies memory loss and Denies panic attacks Elías/Lymph Denies easy bleeding and Denies easy bruising Aller/Immun Denies wheezing Physical exam (Primary Care) Vital Signs: Last Vital Signs Temp 97.3 F 10/04/24 11:04 Pulse 70 10/04/24 11:04 BP 120/80 10/04/24 11:04 Pulse Ox 98 10/04/24 11:04 Oxygen Delivery Method Room Air 10/04/24 11:04 BMI result Body Mass Index 33.2 Tobacco/Smoking Status: Tobacco use Status Tobacco use date assessed 06/18/24 10/04/24 10:52 Patient Tobacco Use Status Never used Tobacco 10/04/24 10:52 Tobacco use type Cigarette 10/04/24 10:52 e-Cigarette/Vaping Use Currently Using ([place]) 10/04/24 10:52 Thrive Assessment: Date of Thrive Assessment Date Thrive assessed 06/18/24 10/04/24 10:52 Currently or been in a relationship where the following occur: I choose not to answer Const General: healthy appearing, no acute distress, alert and awake Nutritional Appearance: well nourished Orientation/consciousness: oriented to person, oriented to place and oriented to time HENMT Ears: TM's normal bilaterally General nose exam: Normal nasal mucous membranes and turbinates present Eyes Conjunctivae: conjunctivae normal Sclerae: sclerae normal Pupils: Equal, round and reactive pupils present Neck Neck: Yes no lymphadenopathy and Yes no JVD Thyroid: Thyroid normal Carotids: no bruits Resp Effort & Inspection: normal respiratory effort and not tachypneic Auscultation: no crackles, no rales, no rhonchi and no wheezes Cardio Rate: regular rate Rhythm: regular rhythm Heart sounds: no murmurs and normal S1 and S2 GI Palpation (GI): Soft to palpation, nontender, no hepatomegaly and no splenomegaly Auscultation: normal bowel sounds Neuro General: oriented to person, oriented to place and oriented to time Cranial nerves: Yes Equal, round and reactive pupils present Speech: No Abnormal speech present Gait exam (Neuro): Normal gait present Motor exam (neuro): no tremor noted Extrem Right upper extremity: full ROM Left upper extremity: full ROM Right lower extremity: full ROM; no edema Left lower extremity: full ROM; no edema Psych Mental Status: mental status grossly normal Speech and movement: Normal speech and movement present Affect: normal affect Attitude: cooperative Thought process: Normal thought process present Results Reviewed Results Reviewed: Laboratory Tests 09/30/24 08:29 WBC 7.8 RBC 5.13 Hgb 15.5 Hct 46.4 MCV 90.4 MCH 30.2 MCHC 33.4 RDW 12.8 Plt Count 263 MPV 10.4 Sodium 140 Potassium 4.3 Chloride 107 Carbon Dioxide 25 Anion Gap 12 BUN 15 Creatinine 0.75 Estimated GFR > 60 Fasting Glucose 85 Calcium 9.1 Total Bilirubin 0.7 AST 30 ALT 33 Alkaline Phosphatase 55 Total Protein 6.6 Albumin 4.4 Triglycerides 88 Cholesterol 190 LDL Cholesterol, Calc 132 H HDL Cholesterol 41 25-OH Vitamin D Total 69.5 TSH 0.74 Coding Level of Care Code Est Pt Level 3 (81568) Diagnoses High cholesterol E78.00 Elevated ALT measurement R74.01 Chronic pain of left knee M25.562; G89.29 Chronicity: chronic Time Spent (min) 34 Assessment & Plan Assessment & Plan (1) High cholesterol: Code(s): E78.00 - Pure hypercholesterolemia, unspecified Category: Medical Plan: The patient previous LDL 113, this has increased on recent labs to 132. Reports going on vacation and started eating badly; this continues days after vacation. Reports particularly eating a lot of ice cream. He went back to his dietary modifications and suspect that his next lab results should reflect this. Will recheck lipid panel in 3 months. (2) Elevated ALT measurement: Code(s): R74.01 - Elevation of levels of liver transaminase levels Category: Medical Plan: His ALT was slightly elevated on previous labs, since has normalized. Continue limiting alcohol and acetaminophen containing products. Will recheck at [facility] in 3 months (3) Left knee pain: Code(s): M25.562 - Pain in left knee Category: Medical Qualifiers: Chronicity: chronic Qualified Code(s): M25.562 - Pain in left knee; G89.29 - Other chronic pain Plan: Intermittent pain to left knee. xray was nonacute. Well-corticated 6 mm calcification, popliteal region was noted. Reports that he has been working with his training to strengthen his knee so he does not need to be referred to PT at this time. Orders: Orders Comprehensive [place]. Panel Fast 3 Months E78.00 - Pure hypercholesterolemia, unspecified, R74.01 - Elevation of levels of liver transaminase levels Lipid Panel 3 Months E78.00 - Pure hypercholesterolemia, unspecified, R74.01 - Elevation of levels of liver transaminase levels UA CC w/rflx Micro + Cult 3 Months E78.00 - Pure hypercholesterolemia, unspecified, R74.01 - Elevation of levels of liver transaminase levels
[2024-10-04 11:04] VITALS: BP 120/80; PULSE 70; TEMP 36.3; O2SAT 98; BMI 33.2
== END 2024-10-04 12:19 | disposition home or self-care (01) ==
LOC: HO.HMCH 10:50
DX: E78.00 Pure hypercholesterolemia, unspecified (principal); R74.01 Elevation of levels of liver transaminase levels; M25.562 Pain in left knee; G89.29 Other chronic pain

== ENCOUNTER → 2024-10-04 10:50 | Outpatient (BNVA) | payer MEDICARE, MEDICAID, SELFPAY | DX: E78.00 Pure hypercholesterolemia, unspecified (principal); R74.01 Elevation of levels of liver transaminase levels; M25.562 Pain in left knee; G89.29 Other chronic pain | CPT/HCPCS: 99212 ==

== ENCOUNTER 2024-10-27 13:25 | Outpatient (REF) | payer MEDICARE, MEDICAID, SELFPAY ==
[2024-10-27 16:19] LABS: Appearance Urine Clear; Glucose Urine UA Negative (Negative); PH 6.5 (5.0-9.0); Specific Gravity - Urine 1.020 (1.005-1.025)
[2024-10-27 16:48] LABS: Alanine Aminotransferase 29 U/L (0-40); Albumin Level 4.2 g/dL (3.5-5.0); Alkaline Phosphatase 54 U/L (39-117); Anion Gap 10 (12-20); Aspartate Amino Transferase 24 U/L (5-37); Blood Urea Nitrogen 12 mg/dL (9-16); Calcium 9.2 mg/dL (8.4-10.2); Carbon Dioxide 28 mmol/L (22-29); Chloride 107 mmol/L (96-108); Estimated Glomerular Filt Rate > 60; Potassium 5.0 mmol/L (3.3-5.1); Sodium 140 mmol/L (135-145); Total Protein 6.7 g/dL (6.5-8.0)
== END 2024-10-27 13:26 | disposition home or self-care (01) ==
LOC: HO.HHCL 13:25
PROVIDERS: Visit Provider Dietitian, Registered
DX: F41.0 Panic disorder [episodic paroxysmal anxiety] (principal); F31.9 Bipolar disorder, unspecified; E78.00 Pure hypercholesterolemia, unspecified; M25.562 Pain in left knee; R74.01 Elevation of levels of liver transaminase levels
CPT/HCPCS: 36415; 80053; 80164; 81003; 82248; 82947

== ENCOUNTER 2025-01-31 10:29 | Outpatient (AMB) | payer MEDICARE, MEDICAID, SELFPAY ==
[2025-01-31 10:44] VITALS: BP 122/70; PULSE 81; RESP 18; TEMP 36.2; O2SAT 97; BMI 34.1
--- NOTE | 2025-01-31 10:44 | A.OFFPC_ITS ---
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 Accompanied by: Self / Same As Patient Allergies buspirone Adverse Reaction (Intermediate, Verified 01/31/25 11:13) face and hand swelling Medication List - Last Reconciled 01/31/25 by YOUSIF Sorensen clonazepam 0.5 mg PO BID PRN divalproex ER 2,000 mg PO BEDTIME lurasidone 120 mg PO DAILY testosterone cypionate 200 mg IM QWEEK 90 days Tobacco use date assessed: 01/31/25 Dental Screening Dental Screen Date: 01/31/25 Did you have a dental visit in the last 12 months?: Yes Did you have a dental problem in the last 6 months where you did not have access to dental care?: No Was dental information given to patient?: Patient has dentist HPI Back muscle and right side pain HPI Details Patient is a 34-year-old transgender male presenting with complaints of low back pain that is worse on the right side Patient reports that he went to play basketball and was achy after, and thought that his pain would subside Reports that his pain has increased since presented and now he feels like he is unable to move He reports pain at bilateral flank areas and said that it is worse on the right side Patient denies any trauma or injury to his back He denies pain radiating down his legs, bladder or bowel incontinence or any numbness or tingling Denies chest pain, sob, headache or dizziness [facility] Medical History (Updated 01/31/25 @ 20:12 by YOUSIF Sorensen) High cholesterol Trans-sexualism with unspecified sexual history Panic attack Fibromyalgia Thyroid nodule Anxiety PTSD (post-traumatic stress disorder) Bipolar 2 disorder WILLI (obstructive sleep apnea) Surgical History H/O sinus surgery Hx of appendectomy H/O rhinoplasty History of cholecystectomy H/O hand surgery S/P knee surgery S/P tonsillectomy and adenoidectomy Family History Sister Narcolepsy Lambert-Eaton syndrome Sister Autoimmune disease Mother Graves disease Social History Housing: Apartment Patient Tobacco Use Status: Never used Tobacco Tobacco use type: Cigarette e-Cigarette/Vaping Use: Currently Using ([place]) Substance Use Type: Marijuana service: No Current occupational status: employed and disabled Cognitive needs: No Hearing needs: No Vision needs: No Questionnaire Thrive Questionnaire Date Thrive assessed: 06/18/24 I am a: Patient What is your living situation today?: I have a steady place to live Within the past 12 months, did the food you bought not last and you didn't have the money to get more?: Sometimes True Within the past 12 months, did you worry whether your food would run out before you got money to buy more?: Sometimes True Do you have trouble paying for medicines?: Yes Do you have trouble getting transportation to medical appointments?: No Do you have trouble paying your heating and electricity bill?: Yes Do you have trouble taking care of your child, family member or friend?: No Do you have trouble with day-to-day activities such as bathing, preparing meals, shopping, managing finances, etc.?: No Are you currently unemployed and looking for a job?: No Are you interested in more education?: Yes Please select the resources that you would like help with: None Currently or been in a relationship where the following occur: I choose not to answer THRIVE Score: 3 ROCÍO-7 AMB Questionnaire ROCÍO-7 Date ROCÍO - 7 assessed: 06/18/24 Source: Developed by Drs. Cristino Serrato, Tamar Portillo, Yahir Das and colleagues, with an educational anthony from [email or web address]. Review of Systems Const Denies chills, Denies fever(s) and Denies headache(s) Eyes Denies loss of vision ENT Denies dizziness and Denies headache(s) Card Denies chest pain, Denies rapid heart rate, Denies leg edema and Denies dyspnea Resp Denies cough, Denies dyspnea and Denies wheezing GI Denies fecal incontinence Denies urinary incontinence Musc Reports back pain, Denies numbness, Denies radiating pain into limb and Denies tingling Neuro Denies dizziness, Denies headache(s), Denies loss of vision, Denies numbness and Denies tingling Aller/Immun Denies wheezing Physical exam (Primary Care) Vital Signs: Last Vital Signs Temp 97.1 F 01/31/25 10:44 Pulse 81 01/31/25 10:44 Resp 18 01/31/25 10:44 BP 122/70 01/31/25 10:44 Pulse Ox 97 01/31/25 10:44 Oxygen Delivery Method Room Air 01/31/25 10:44 BMI result Body Mass Index 34.1 Tobacco/Smoking Status: Tobacco use Status Tobacco use date assessed 01/31/25 01/31/25 10:51 Patient Tobacco Use Status Never used Tobacco 01/31/25 10:46 Tobacco use type Cigarette 01/31/25 10:46 e-Cigarette/Vaping Use Currently Using ([place]) 01/31/25 10:46 Thrive Assessment: Date of Thrive Assessment Date Thrive assessed 06/18/24 01/31/25 10:46 Currently or been in a relationship where the following occur: I choose not to answer Const General: cooperative Orientation/consciousness: oriented to person, oriented to place, oriented to time and patient oriented x3 HENMT Head: Yes normal to inspection Ears: hearing grossly normal bilaterally General nose exam: Normal external nose present Eyes Pupils: Equal, round and reactive pupils present Neck Neck: Yes no lymphadenopathy Resp Effort & Inspection: normal respiratory effort Auscultation: clear to auscultation bilaterally Cardio Rate: regular rate Rhythm: regular rhythm Heart sounds: S1 normal heart sound present and S2 normal heart sound present GI Palpation (GI): Soft to palpation, nontender and No hepatosplenomegaly present Percussion: Yes normal to percussion General: Yes CVA tenderness bilateral Back/Spine/Pelvis Back: CVA tenderness Thoracic/Lumbar Spine: straight leg raise negative bilaterally and paraspinal muscle tenderness bilaterally and on the left greater than right Neuro General: oriented to person, oriented to place, oriented to time and patient oriented x3 Cranial nerves: Yes Equal, round and reactive pupils present Extrem Right upper extremity: full ROM Left upper extremity: full ROM Right lower extremity: full ROM; no edema Left lower extremity: full ROM; no edema Results AMB Urinalysis, Automated UA Leukoctes 0 Fabrizio/uL Last Edit by Marybel Mas MA on 01/31/25 11: 30 UA Nitrite Negative Last Edit by Marybel Mas MA on 01/31/25 11:3 0 UA Urobilinogen 0.2 mg/dL Last Edit by Marybel Mas MA on 01/31/25 11:30 UA Protein 15 mg/dL Last Edit by Marybel Mas MA on 01/31/25 11:30 UA pH 8.0 Last Edit by Marybel Mas MA on 01/31/25 11:30 UA Blood 0 Mundo/uL Last Edit by Marybel Mas MA on 01/31/25 11:30 UA Specific Cecil 1.010 Last Edit by Marybel Mas MA on 5 11:30 UA Ketone Negative Last Edit by Marybel Mas MA on 01/31/25 11:30 UA Bilirubin 0 mg/dL Last Edit by Marybel Mas MA on 01/31/25 11:3 0 UA Glucose 0 mg/dL Last Edit by Marybel Mas MA on 01/31/25 11:30 Results Reviewed Results Reviewed: Laboratory Last Values Urine pH (Auto) 8.0 01/31/25 11:25 Specific Cecil (Auto) 1.010 01/31/25 11:25 Urine Protein (Auto) 15 mg/dL 01/31/25 11:25 Glucose (UA)(Auto) 0 mg/dL 01/31/25 11:25 Urine Ketones (Auto) Negative 01/31/25 11:25 Urine Blood (Auto) 0 Mundo/uL 01/31/25 11:25 Urine Nitrite (Auto) Negative 01/31/25 11:25 Urine Bilirubin (Auto) 0 mg/dL 01/31/25 11:25 Urine Urobilinogen (Auto) 0.2 mg/dL 01/31/25 11:25 Leukocyte Esterase (Auto) 0 Fabrizio/uL 01/31/25 11:25 Coding Level of Care Code Est Pt Level 3 (13020) Diagnoses Acute bilateral low back pain without sciatica M54.50 Chronicity: acute Back pain laterality: bilateral Sciatica presence: without sciatica Flank pain, bilateral R10.A3 Time Spent (min) 29 Assessment & Plan Assessment & Plan (1) Low back pain: Code(s): M54.50 - Low back pain, unspecified Category: Medical Qualifiers: Chronicity: acute Back pain laterality: bilateral Sciatica presence: without sciatica Qualified Code(s): M54.50 - Low back pain, unspecified Plan: Avoid bed rest (including sitting in bed) and to simply limit painful activities; improvement usually occurs within a few weeks May use cool packs; may alternate cold and hot packs Exercises a love (e.g., walking, swimming, cycling) as soon as possible, starting with 5-10 min and walk-in up to 20-30 minute q.day Abdominal core and back strengthening exercises may help to prevent future problems Lumbar x-ray ordered to further evaluate. Start Meloxicam 15 mg daily p.r.n. and cyclobenzaprine 10 mg daily at bedtime p.r.n. (2) Flank pain, bilateral: Code(s): R10.A3 - Flank pain, bilateral Category: Medical Plan: Urinalysis done in office negative for blood. We will continue to monitor Orders: Orders XR lumbar spine 2-3V Today M54.50 - Low back pain, unspecified AMB Urinalysis Automated Today Z13.9 - Encounter for screening, unspecified UA CC w/rflx Micro + Cult Today R10.A3 - Flank pain, bilateral Medications: New meloxicam 15 mg PO DAILY PRN 30 tabs 0RF back pain cyclobenzaprine 10 mg PO BEDTIME PRN 30 tabs 2RF muscle spasm
== END 2025-01-31 11:31 | disposition home or self-care (01) ==
LOC: HO.HMCH 10:30
DX: M54.50 Low back pain, unspecified (principal); R10.A3 Flank pain, bilateral; Z13.9 Encounter for screening, unspecified

== ENCOUNTER → 2025-01-31 10:29 | Outpatient (BNVA) | payer MEDICARE, MEDICAID, SELFPAY | DX: R10.A3 Flank pain, bilateral (principal); M54.50 Low back pain, unspecified | CPT/HCPCS: 81003; 99212 ==